=== PATIENT | male | born 1945 | race Caucasian/White ===

== ENCOUNTER 2021-01-20 19:59 | Emergency (ER) | payer OTHER, MEDICARE ==
[~2021-01-20 19:59] MED LIST: ASPIRIN CHEWABL81 MG PO; B-12; CO Q-10200 MG PO; COLACE100 MG PO; EFFIENT10 MG PO; FLOMAX0.4 MG PO; LOVAZA1 GM PO; NORVASC5 MG PO; PEPCID AC20 MG PO; PRALUENT P150 MG/1 M IJ; PRALUENT P150 MG/1 M IN; TOPROL XL 50 MG50 MG PO; ZYRTEC10 M3 PO
== END 2021-01-20 22:34 | disposition home or self-care (01) ==
LOC: FER 19:59
DX: S61.216A Laceration without foreign body of right little finger without damage to nail, initial encounter (principal); J44.9 Chronic obstructive pulmonary disease, unspecified; I50.9 Heart failure, unspecified; Z95.5 Presence of coronary angioplasty implant and graft; Z88.8 Allergy status to other drugs, medicaments and biological substances; W23.1XXA Caught, crushed, jammed, or pinched between stationary objects, initial encounter; W19.XXXA Unspecified fall, initial encounter; Y92.009 Unspecified place in unspecified non-institutional (private) residence as the place of occurrence of the external cause
CPT/HCPCS: 73130

== ENCOUNTER 2021-07-10 15:58 | Emergency (ER) | payer OTHER, MEDICARE ==
[2021-07-10 16:27] LABS: BASOPHIL 0.6 % (0-2); HGB 14.7 g/dl (13.2-18.0); LYMPHOCYTE 21.9 % (15-48); MCH 29.9 pg (25.0-31.0); MCHC 32.7 g/dL (32.0-36.0); MCV 91.6 fL (78.0-100.0); MONOCYTE 10.1 % (0-12); MPV 9.7 fL (6.0-9.5); NEUTROPHIL 64.2 % (41-80); NRBC 0; PLT 205 K/uL (150-400); RBC 4.91 M/uL (4.70-6.00); RDW 13.1 % (11.5-14.0); WBC 8.2 K/uL (4.0-10.5)
[2021-07-10 16:39] LABS: PROTHROMBIN TIME 12.6 SECONDS (11.8-13.4)
[2021-07-10 16:46] LABS: ALBUMIN 3.3 g/dL (3.4-5.0); BILIRUBIN - TOTAL 0.7 mg/dL (0.2-1.0); BUN/CREAT RATIO (CALC) 13.6 RATIO; CREATININE 1.32 mg/dL (0.67-1.17); GLOBULIN (CALCULATION) 5.2 g/dL; POTASSIUM 3.6 mmol/L (3.5-5.1); TOTAL PROTEIN 8.5 g/dL (6.4-8.2)
[2021-07-10 16:52] LABS: PRO-BNP 525 pg/mL (<450)
== END 2021-07-10 21:13 | disposition left against medical advice (07) ==
LOC: FER 15:58
PROVIDERS: Physician Assistant
DX: R07.89 Other chest pain (principal); B34.9 Viral infection, unspecified; I11.0 Hypertensive heart disease with heart failure; I50.9 Heart failure, unspecified; I25.2 Old myocardial infarction; Z88.8 Allergy status to other drugs, medicaments and biological substances; Z87.891 Personal history of nicotine dependence; Z79.82 Long term (current) use of aspirin; Z79.899 Other long term (current) drug therapy; Z20.822 Contact with and (suspected) exposure to COVID-19
CPT/HCPCS: 36415; 71045; 80053; 83735; 83880; 84484; 85025; 85379; 85610; 93005; U0002